=== PATIENT | male | born 1950 | race Caucasian/White ===

== ENCOUNTER 2018-11-10 11:00 | Outpatient (REF) | payer MEDICARE, BC, SELFPAY ==
[2018-11-10 19:35] LABS: ALT 43 U/L (12-78); Anion Gap 8.1 mmol/L (3-11); BUN 15 mg/dL (7-18); CO2 28.9 mmol/L (21.0-32.0); CREATININE 0.77 mg/dL (0.70-1.30); Calcium 9.3 mg/dL (8.5-10.1); Chloride 102 mmol/L (98-107); Glucose 101 mg/dL (70-100); LDL CHOLESTEROL 54 mg/dL (<100); Potassium 3.6 mmol/L (3.5-5.1); Sodium 139 mmol/L (136-145)
== END 2018-11-10 11:20 ==
LOC: NCHCN 11:00
PROVIDERS: PCP Internal Medicine; Visit Provider Internal Medicine
DX: E78.5 Hyperlipidemia, unspecified (principal); I10 Essential (primary) hypertension
CPT/HCPCS: 80048; 83721; 84460

== ENCOUNTER 2020-02-08 09:18 | Outpatient (REF) | payer MEDICARE, BC, SELFPAY ==
[2020-02-08 19:28] LABS: Anion Gap 5.8 mmol/L (3-11); BUN 17 mg/dL (7-18); CO2 30.2 mmol/L (21.0-32.0); CREATININE 0.85 mg/dL (0.70-1.30); Calcium 9.1 mg/dL (8.5-10.1); Calculated LDL 68 mg/dL (<100); Chloride 105 mmol/L (98-107); Cholesterol 143 mg/dL (<200); Glucose 122 mg/dL (74-106); HDL Cholesterol 57 mg/dL (40-60); Potassium 4.2 mmol/L (3.5-5.1); Sodium 141 mmol/L (136-145); Triglyceride 93 mg/dL (<150)
== END 2020-02-08 09:38 ==
LOC: NCHCN 09:18
PROVIDERS: PCP Internal Medicine; Visit Provider Internal Medicine
DX: I10 Essential (primary) hypertension (principal)
CPT/HCPCS: 80048; 80061

== ENCOUNTER 2020-08-08 12:34 | Outpatient (REF) | payer MEDICARE, BC, SELFPAY ==
[2020-08-08 19:38] LABS: TSH 1.03 uIU/mL (0.36-3.74); Vitamin B12 728 pg/mL (193-986)
== END 2020-08-08 12:54 ==
LOC: NCHCN 12:34
PROVIDERS: PCP Internal Medicine; Visit Provider Internal Medicine
DX: R73.9 Hyperglycemia, unspecified (principal); Z00.00 Encounter for general adult medical examination without abnormal findings; Z86.010 Personal history of colon polyps; I10 Essential (primary) hypertension
CPT/HCPCS: 82607; 84443

== ENCOUNTER 2021-03-26 16:43 | Outpatient (REF) | payer MEDICARE, BC, SELFPAY ==
[2021-03-26 21:11] LABS: ALT 33 U/L (16-63); AST 21 U/L (15-37); Albumin 4.1 g/dL (3.4-5.0); Alkaline Phosphatase 65 U/L (46-116); Anion Gap 11.6 mmol/L (3-11); BUN 15 mg/dL (7-18); Bilirubin, Total 0.7 mg/dL (0.2-1.0); CO2 25.4 mmol/L (21.0-32.0); CREATININE 0.8 mg/dL (0.70-1.30); Chloride 103 mmol/L (98-107); Glucose 103 mg/dL (74-106); LDL CHOLESTEROL 38 mg/dL (<100); Potassium 3.9 mmol/L (3.5-5.1); Sodium 140 mmol/L (136-145); Total Protein 7.1 g/dL (6.4-8.2)
== END 2021-03-26 16:44 | disposition home or self-care (01) ==
LOC: NCHCN 16:43
PROVIDERS: PCP Internal Medicine; Visit Provider Internal Medicine
DX: E78.5 Hyperlipidemia, unspecified (principal); I10 Essential (primary) hypertension
CPT/HCPCS: 80053; 83721

== ENCOUNTER 2022-06-11 10:54 | Outpatient (REF) | payer MEDICARE, SELFPAY ==
[2022-06-11 19:38] LABS: Anion Gap 8.8 mmol/L (3-11); BUN 17 mg/dL (7-18); CO2 26.2 mmol/L (21.0-32.0); CREATININE 0.8 mg/dL (0.70-1.30); Calcium 9.3 mg/dL (8.5-10.1); Calculated LDL 27 mg/dL (<100); Chloride 99 mmol/L (98-107); Cholesterol 113 mg/dL (<200); Estimated GFR 94.62 (mL/min/1.73m2); Glucose 116 mg/dL (74-106); HDL Cholesterol 69 mg/dL (40-60); Potassium 3.7 mmol/L (3.5-5.1); Sodium 134 mmol/L (136-145); Triglyceride 85 mg/dL (<150)
== END 2022-06-11 10:55 | disposition home or self-care (01) ==
LOC: NCHCN 10:54
PROVIDERS: PCP Internal Medicine; Visit Provider Internal Medicine
DX: I10 Essential (primary) hypertension (principal); Z00.00 Encounter for general adult medical examination without abnormal findings
CPT/HCPCS: 80048; 80061

== ENCOUNTER 2023-06-14 19:13 | Outpatient (REF) | payer MEDICARE, SELFPAY ==
[2023-06-14 20:09] LABS: ALT 37 U/L (16-63); Anion Gap 9.4 mmol/L (3-11); BUN 17 mg/dL (7-18); CO2 26.6 mmol/L (21.0-32.0); CREATININE 0.9 mg/dL (0.70-1.30); Calcium 9.3 mg/dL (8.5-10.1); Chloride 100 mmol/L (98-107); Estimated GFR 90.74 (mL/min/1.73m2); Glucose 109 mg/dL (74-106); LDL CHOLESTEROL 36 mg/dL (<100); Potassium 3.8 mmol/L (3.5-5.1); Sodium 136 mmol/L (136-145)
== END 2023-06-14 19:14 | disposition home or self-care (01) ==
LOC: NCHCN 19:13
PROVIDERS: PCP Internal Medicine; Visit Provider Internal Medicine
DX: I10 Essential (primary) hypertension (principal); E78.5 Hyperlipidemia, unspecified
CPT/HCPCS: 80048; 83721; 84460

== ENCOUNTER 2023-07-05 11:24 | Outpatient (REF) | payer MEDICARE, SELFPAY ==
[2023-07-05 19:27] LABS: ESR 27 mm/hr (0-20)
[2023-07-06 19:06] LABS: CRP, High Sensitivity >15.00 mg/L (See Note)
[2023-07-08 10:44] LABS: Lyme Ab w Rflx to Lyme Confirm Negative (Negative)
== END 2023-07-05 11:25 | disposition home or self-care (01) ==
LOC: NCHCN 11:24
PROVIDERS: PCP Internal Medicine; Visit Provider Internal Medicine
DX: M25.462 Effusion, left knee (principal)
CPT/HCPCS: 85652; 86141; 84550; 86618

== ENCOUNTER 2025-06-21 19:03 | Outpatient (REF) | payer MEDICARE, SELFPAY ==
[2025-06-21 19:16] LABS: HCT 33.8 % (40.0-50.0); HGB 10.7 g/dL (13.5-17.5); MCH 23.9 pg (27.0-33.0); MCHC 31.7 % (32.0-36.0); MCV 76 fL (80-95); MPV 10.4 fL (8.0-11.0); Platelet Count 363 10^3/uL (130-400); RBC 4.47 10^6/uL (4.36-5.78); RDW 15.6 % (11.8-14.1); RDW-SD 42.5 fL; WBC 5.88 10^3/uL (4.4-10.8)
[2025-06-21 19:30] LABS: Hemoglobin A1C 6.0 % (<5.7)
[2025-06-21 19:36] LABS: ALT 27 U/L (16-63); AST 19 U/L (15-37); Albumin 3.9 g/dL (3.4-5.0); Alkaline Phosphatase 74 U/L (46-116); Anion Gap 8.7 mmol/L (3-11); BUN 14 mg/dL (7-18); Bilirubin, Total 0.8 mg/dL (0.2-1.0); CO2 27.3 mmol/L (21.0-32.0); Calcium 8.9 mg/dL (8.5-10.1); Calculated LDL 31 mg/dL (<100); Chloride 93 mmol/L (98-107); Cholesterol 113 mg/dL (<200); Estimated GFR 92.87 (mL/min/1.73m2); Glucose 116 mg/dL (74-106); HDL Cholesterol 71 mg/dL (>or=40); Potassium 4.2 mmol/L (3.5-5.1); Sodium 129 mmol/L (136-145); Total Protein 7.4 g/dL (6.4-8.2); Triglyceride 58 mg/dL (<150)
== END 2025-06-21 19:04 | disposition home or self-care (01) ==
LOC: NCHCN 19:03
PROVIDERS: PCP Internal Medicine; Visit Provider Nurse Practitioner Family
DX: Z00.00 Encounter for general adult medical examination without abnormal findings (principal)
CPT/HCPCS: 80053; 80061; 85027; 83036

== ENCOUNTER 2025-07-26 12:08 | Outpatient (REF) | payer MEDICARE, SELFPAY ==
[2025-07-26 19:07] LABS: HCT 36.6 % (40.0-50.0); HGB 11.9 g/dL (13.5-17.5); MCH 26.2 pg (27.0-33.0); MCHC 32.5 % (32.0-36.0); MCV 81 fL (80-95); MPV 10.4 fL (8.0-11.0); Platelet Count 314 10^3/uL (130-400); RBC 4.54 10^6/uL (4.36-5.78); RDW-SD 61.1 fL; WBC 4.77 10^3/uL (4.4-10.8)
[2025-07-26 19:17] LABS: RDW 21.6 % (11.8-14.1)
[2025-07-26 19:19] LABS: Iron 172 ug/dL (65-175); Total Iron Binding Capacity 351 ug/dL (250-425); Transferrin Sat 49 % (20-55)
[2025-07-26 19:23] LABS: Ferritin 27 ng/mL (11-307)
== END 2025-07-26 12:09 | disposition home or self-care (01) ==
LOC: NCHCN 12:08
PROVIDERS: PCP Internal Medicine; Visit Provider Nurse Practitioner Family
DX: D64.9 Anemia, unspecified (principal)
CPT/HCPCS: 85027; 82728; 83540; 83550